=== PATIENT | female | born 1945 | race Caucasian/White ===

== ENCOUNTER 2016-06-20 15:00 | Inpatient (IN) | payer MEDICARE, BC ==
[~2016-06-20] VITALS: Ht 162.6 cm; Wt 80.5 kg
--- NOTE | ~2016-06-20 | OR ---
[facility] AGE[facility] 70 Y [address] ROOM: [address] [address] LOCATION: [facility] ADMIT DATE: 07/03/2016 OR/Procedure Report DISCHARGE DATE: FAMILY PHYSICIAN: Tiburcio Mensah MD ATTENDING PHYSICIAN: MERCEDES VENTURA SURGEON: Mercedes Ventura MD HOOP FLARING MACHINE OPERATOR HELPER: 1. MOLLY Peña. 2. Adam Dumont CST/ALLY. DATE OF PROCEDURE: 07/03/2016 PRE-OP DIAGNOSIS: Degenerative joint disease left knee. POST-OP DIAGNOSIS: Degenerative joint disease left knee. OPERATION: Left total knee arthroplasty with computer navigation. ANESTHESIA: Spinal anesthesia plus adductor canal block plus periarticular local anesthesia (ropivacaine with epinephrine and Toradol). ESTIMATED BLOOD LOSS: Less than 10 mL. DRAIN: None. SPECIMEN: None. COMPLICATIONS: None. IMPLANT SYSTEM: Dena Triathlon. Size 3 left posterior stabilized femoral component Size 2 universal modular tibial base plate 13 mm posterior stabilized size 2 X3 tibial polyethylene insert 29 mm oval X3 patella component. INDICATIONS FOR SURGERY: Ms. Moni Magdaleno is a 70-year-old female who presents with advanced left knee degenerative joint disease and associated severely compromised activities of daily living. The patient has decided to proceed with knee replacement after having been thoroughly counseled regarding the associated risks, benefits, and limitations. We have specifically reviewed the risks and implications of infection, deep venous thrombosis, pulmonary embolism, mortality, neurovascular complications, blood transfusion (and associated potential for disease transmission or transfusion reaction), stiffness, instability, mechanical deterioration of the components (due to wear and or loosening), and the potential need for revision. We have also emphasized the importance of active involvement and compliance with post- operative physical therapy as a means of optimizing range of motion and PAT[facility]'S [facility] AGE: 70 Y [address] ROOM: [address] [address] LOCATION: [facility] ADMIT DATE: 07/03/2016 OR/Procedure Report DISCHARGE DATE: FAMILY PHYSICIAN: Tiburcio Mensah MD ATTENDING PHYSICIAN: MERCEDES VENTURA functional recovery. Informed consent has been granted. DESCRIPTION OF PROCEDURE: The patient was positioned supine after administration of anesthesia and prophylactic antibiotics. A well-padded pneumatic tourniquet was placed around the left proximal thigh, and the left lower extremity was prepped and draped with vigilant sterile technique. The patient's name as well as the intended operative side and procedure were confirmed with a verbal time-out involving myself, the circulating nurse, the scrub nurse, and the anesthesiologist. Examination under anesthesia demonstrated well-healed inferomedial and inferolateral arthroscopy portal scars. There were no active skin lesions or masses. There was a moderate effusion. There was no erythema. There was no abnormal warmth. Range of motion under anesthesia was from full extension to 130 degrees of flexion. There was no ligamentous insufficiency. The left lower extremity was elevated and exsanguinated with an Esmarch wrap, and the pneumatic tourniquet was inflated to 300mmHg. The knee was approached through a longitudinal midline incision. A medial parapatellar arthrotomy was performed and the patella was everted. Examination of the joint space demonstrated a large amount of benign-appearing translucent synovial fluid. There was a 10 x 5 x 6 mm osseous loose body in the medial gutter. There was a small popliteal cyst which I decompressed into the joint space by dilating its point of communication with the posteromedial capsule. The cruciate ligaments were intact. There was full-thickness loss of articular cartilage involving 80% of the medial tibial plateau and 90% of the medial femoral condyle. There were large osteophytes at the medial femoral condyle and medial tibial plateau. There were grade 2 degenerative changes at the medial aspect of the lateral femoral condyle and the medial aspect of the lateral tibial plateau. There were small osteophytes at the superior and inferior margins of the patella. There was full-thickness loss of articular cartilage involving 80% of the medial facet of the patella. There was complex degenerative tearing throughout the posterior two-thirds of the medial meniscus. The lateral meniscus was intact. Remnants of the menisci and cruciate ligaments were excised. The [employer] computer navigation femoral tracker was pinned in place at the distal aspect of the femoral trochlea. Absence of motion between the femur and the tracking device was confirmed manually and visually. Femoral osseous landmarks were obtained in order to calibrate the computer navigation system. Landmarks included the center of rotation of the ipsilateral hip, the center-point of the distal femur, the femoral AP axis, 57 points on the medial femoral condyle articular surface, and 57 points on the lateral femoral condyle articular surface. The [employer] computer navigation system was subsequently utilized PATIENT'S NAME: MONI MAGDALENO [facility] AGE: 70 Y [address] ROOM: [id number] [place], [place] [address] LOCATION: [facility] ADMIT DATE: 07/03/2016 OR/Procedure Report DISCHARGE DATE: FAMILY PHYSICIAN: Tiburcio Mensah MD ATTENDING PHYSICIAN: MERCEDES VENTURA to position the distal femoral resection block such that the distal femoral resection was performed perfectly perpendicular to the femoral mechanical axis. The distal femoral resection was performed with a [employer] oscillating saw. The [employer] computer navigation tibial tracker was pinned in place at the anterior aspect of the tibial plateau. Absence of motion between the tibia and the tracking device was confirmed manually and visually. Tibial osseous landmarks were obtained in order to calibrate the computer navigation system. Landmarks included the center-point of the tibial plateau, the AP tibial axis, 57 points on the medial tibial plateau articular surface, 57 points on the lateral tibial plateau articular surface, the medial malleolus, and the lateral malleolus. The [employer] computer navigation system was subsequently utilized to position the proximal tibial resection block such that the proximal tibial resection was performed perfectly perpendicular to the tibial mechanical axis. The proximal tibial resection was performed with a [employer] oscillating saw. Perpendicularity of the tibial resection with respect to the tibial shaft axis was reconfirmed by inserting a spacer- block attached to an extramedullary guide ivan. External rotation of the anterior and posterior femoral resections was set parallel to the epicondylar axis and carefully adjusted in order to create a rectangular flexion gap. The box resection was performed with a reciprocating saw. Anterior and posterior chamfer resections were performed with the oscillating saw. Posterior condyle osteophytes were excised with an osteotome. All other osteophytes were excised with a rongeur. Resection of all remnants of the menisci was reconfirmed. Flexion and extension gaps were confirmed to be symmetric and well balanced with a spacer-block technique. The patella resection was performed with an oscillating saw such that the composite thickness of the reconstructed patella was equivalent to the thickness of the coquille patella. Patella tracking was confirmed to be optimal. Patella tracking was optimal, and there was no need for a lateral retinacular release. All trial components were removed and all prepared osseous surfaces were thoroughly irrigated with pulsatile saline lavage and dried prior to cementing all three components in a single stage using Fingal Simplex cement containing pre-mixed tobramycin. All extruded excess cement was removed. The entire joint space was thoroughly inspected and thoroughly irrigated with bacteriostatic pulsatile saline lavage to assure that there was no residual debris of any sort. Final range of motion was from full extension (with no passive hyperextension) to 130 degrees of flexion. Patella tracking was reconfirmed to be optimal. PATIENT'S NAME: MONI MAGDALENO [facility] AGE: 70 Y [address] ROOM: [address] [address] LOCATION: [facility] ADMIT DATE: 07/03/2016 OR/Procedure Report DISCHARGE DATE: FAMILY PHYSICIAN: Tiburcio Mensah MD ATTENDING PHYSICIAN: MERCEDES VENTURA There was an excellent anteroposterior stability at 90 degrees of flexion. There was 0 mm of medial lift-off to valgus stress in full extension. There was 1 mm of lateral lift-off to varus stress in full extension. The arthrotomy was closed with multiple simple and [id number] interrupted #1 Vicryl. Subcutaneous tissues were thoroughly re-irrigated with bacteriostatic pulsatile saline lavage. Subcutaneous tissues were re- approximated with simple buried interrupted #0 Vicryl sutures. The skin was closed with simple buried interrupted 2-0 Vicryl sutures followed by surgical maykel. The dressing consisted of Xeroform gauze, 4x4 gauze, ABD pads and two 6-inch Madan Wraps. There were no intra-operative complications. It should be noted that the physician's assistant to the dean played an active, integral role throughout this entire operation. By providing expert retraction, they greatly facilitated and expedited safe and effective exposure of the distal femur, proximal tibia and patella for preparation and implantation of the components. They were also actively involved in the patient's positioning, prepping and draping, as well as wound closure. MD GYPSY LOTT/nichelle /[id number] d: 07/03/[id number] t: 07/06/16 2222, OPERATIVE SUMMARY
--- NOTE | ~2016-06-20 | DS ---
PATIENT'S NAME: [facility] AGE: 70 Y [address] ROOM: [address] [address] LOCATION: [facility] ADMIT DATE: 07/03/2016 Discharge Summary DISCHARGE DATE: 07/05/2016 FAMILY PHYSICIAN: Tiburcio Mensah MD ATTENDING PHYSICIAN: Kimo Darling PRIMARY DIAGNOSIS: Degenerative joint disease of the left knee. SECONDARY DIAGNOSES: 1. Gastroesophageal reflux disease. 2. Hypertension. 3. History of diverticulosis. 4. Hypothyroidism. 5. Osteopenia. 6. Vitamin D deficiency. 7. Rheumatoid arthritis. PROCEDURE PERFORMED: Left total knee arthroplasty with computer navigation. HISTORY: The patient is a 70-year-old female, who presents with advanced left knee degenerative joint disease and associated severely compromised activities of daily living. The patient has decided to proceed with total knee arthroplasty after having been thoroughly counseled regarding the risks, benefits, limitations and alternatives. Please refer to the outpatient clinic notes and admission history and physical for this patient. HOSPITAL COURSE: The patient underwent a left total knee arthroplasty on 07/03/2016 without complications. Spinal anesthesia plus adductor canal block plus periarticular local anesthesia was utilized. The patient received 24 hours of perioperative prophylactic antibiotics and remained hemodynamically stable, neurovascularly intact throughout the entire hospital course. The postoperative prophylactic deep venous thrombosis prophylaxis consisted of Xarelto 10 mg, early mobilization and pneumatic compression devices. Daily physical therapy for gait training, transfer training range of motion and quadriceps isometric exercises were received. The patient progressed well in physical therapy. On the date of discharge, 07/05/2016, the incision at the knee was healing well and showed no signs of infection. DISPOSITION: Home. DISCHARGE ACTIVITY: The patient is to bear weight as tolerated with range of motion and quadriceps isometric exercises as instructed. The operative extremity is to be elevated at least 90% of the day. There is to be sterile 4x4 gauze dressings to the incision daily. Dr. Darling is to be notified immediately if there is any increased pain, fevers, chills erythema or PATIENT'S NAME: [facility] AGE: 70 Y [address] ROOM: [address] [address] LOCATION: [facility] ADMIT DATE: 07/03/2016 Discharge Summary DISCHARGE DATE: 07/05/2016 FAMILY PHYSICIAN: Tiburcio Mensah MD ATTENDING PHYSICIAN: Kimo Darling. DISCHARGE MEDICATIONS: 1. Xarelto 10 mg, take 1 tab p.o. daily for DVT prevention. 2. Dilaudid 2 mg, take 1 to 2 tablets p.o. every 4 hours as needed for pain. FOLLOWUP: Followup appointment is to be with Dr. Darling on Sunday July 10, 2016, for initial postoperative evaluation and x-rays at that time. MOLLY ANGELES FOR KIMO DARLING MD TLB/modl /[id number] d: 07/15/162 t: 07/18/16 1512, DISCHARGE SUMMARY
[2016-06-20] MEDS ORDERED: LEVOTHROID (S125 MCG PO (15:44)
[2016-06-20] MEDS ORDERED: NAPROSYN500 MG PO (15:44)
[2016-06-20] MEDS ORDERED: PLAQUENIL200 MG PO (15:44)
[2016-06-20] MEDS ORDERED: TENORMIN50 MG PO (15:45)
[2016-06-20] MEDS ORDERED: MICROZIDE12.5 MG PO (15:45)
[2016-06-20] MEDS ORDERED: ASPIRIN EC81 MG PO (15:45)
[2016-06-20] MEDS ORDERED: PANTOPRAZOLE SO40 MG PO (15:45)
[2016-06-20] MEDS ORDERED: VITAMIN D1000 UNIT PO (15:46)
[2016-06-20] MEDS ORDERED: CALTRATE 600 +1 EAC1 PO (15:46)
[2016-06-20] MEDS ORDERED: COLACE100 MG PO (15:46)
[2016-06-20] MEDS ORDERED: ULTRAM50 MG PO (15:47)
[2016-06-20] MEDS ORDERED: BIAXIN500 MG PO (15:48)
[2016-07-05] MEDS ORDERED: NEURONTIN300 MG PO (09:59)
[2016-07-05] MEDS ORDERED: TYLENOL EXTRA500 MG PO (09:59)
[2016-07-05] MEDS ORDERED: MIRALAX17 GM PO (10:01)
[2016-07-05] MEDS ORDERED: XARELTO10 MG PO (10:02)
[2016-07-05] MEDS ORDERED: DILAUDID 2MG(HYD2 MG PO (10:05)
== END 2016-07-05 13:20 | disposition disaster alternative care site (69) | DRG 470 ==
LOC: G3N 07-03 06:41
PROVIDERS: ADMIT Orthopaedic Surgery
DX: M17.12 Unilateral primary osteoarthritis, left knee (principal); M06.9 Rheumatoid arthritis, unspecified; K21.9 Gastro-esophageal reflux disease without esophagitis; I10 Essential (primary) hypertension; E03.9 Hypothyroidism, unspecified; E55.9 Vitamin D deficiency, unspecified; M85.80 Other specified disorders of bone density and structure, unspecified site; Z79.82 Long term (current) use of aspirin; K59.00 Constipation, unspecified
CPT/HCPCS: C1713; C1776; J0360; J1100; J1170; J1885; J2250; J2795; J3370; J7120

== ENCOUNTER → 2016-06-22 | Outpatient (CLI) | payer MEDICARE, BC ==
[~2016-06-22] MED LIST: ASPIRIN EC81 MG PO; BIAXIN500 MG PO; CALTRATE 600 +1 EAC1 PO; COLACE100 MG PO; DILAUDID 2MG(HYD2 MG PO; LEVOTHROID (S125 MCG PO; MICROZIDE12.5 MG PO; MIRALAX17 GM PO; NAPROSYN500 MG PO; NEURONTIN300 MG PO; PANTOPRAZOLE SO40 MG PO; PLAQUENIL200 MG PO; TENORMIN50 MG PO; TYLENOL EXTRA500 MG PO; ULTRAM50 MG PO; VITAMIN D1000 UNIT PO; XARELTO10 MG PO
== END | disposition disaster alternative care site (69) ==
LOC: GNJRC 10:12
DX: Z01.812 Encounter for preprocedural laboratory examination (principal); M17.12 Unilateral primary osteoarthritis, left knee